=== PATIENT | male | born 1980 | race African-American/Black ===

== ENCOUNTER 2021-04-27 13:18 | Emergency (ER) | payer OTHER ==
[2021-04-27 13:29] VITALS: TEMP 98.5; BMI 23.0
[2021-04-27 14:40] LABS: URINE APPEARANCE CLEAR; URINE BILIRUBIN NEGATIVE (NEGATIVE); URINE COLOR YELLOW; URINE GLUCOSE (UA) NEGATIVE (NEGATIVE); URINE KETONE NEGATIVE (NEGATIVE); URINE LEUK ESTERASE NEGATIVE (NEGATIVE); URINE NITRITE NEGATIVE (NEGATIVE); URINE PROTEIN NEGATIVE (NEGATIVE)
[2021-04-27 14:50] LABS: EOS % 1.4 % (0-4.5); HEMATOCRIT 42.8 % (35.4-49); HEMOGLOBIN 13.8 GM/dL (11.7-16.9); LYMPH % 33.7 % (8-40); MCH 23.6 pg (25.7-33.7); MCHC 32.3 g/dl (32.0-35.9); MEAN CELL VOLUME 73.1 fl (80-96); MEAN PLT VOLUME 8.4 fl (7.5-11.1); MONO % 13.2 % (3.8-10.2); NEUT % 50.7 % (42.8-82.8); PLATELET COUNT 258 K/MM3 (134-434); RBC 5.86 M/mm3 (4.00-5.60); RDW 16.9 % (11.9-15.9); WHITE BLOOD COUNT 4.1 K/mm3 (4.0-10.0)
[2021-04-27 15:00] LABS: INR 1.01 (0.83-1.09); PROTHROMBIN TIME (PATIENT) 12.4 SEC (9.7-13.0)
[2021-04-27 15:02] LABS: ACTIVATED PTT 30.8 SECONDS (25.2-36.5)
[2021-04-27 15:12] LABS: ALBUMIN 4.6 g/dl (3.4-5.0); CALCIUM 9.1 mg/dL (8.5-10.1)
[2021-04-27 15:13] LABS: BLOOD UREA NITROGEN 13.7 mg/dL (7-18)
[2021-04-27 15:16] LABS: CREATININE 0.9 mg/dL (0.55-1.3)
[2021-04-27 15:17] LABS: BILIRUBIN,TOTAL 0.5 mg/dL (0.2-1); TOT PROT 7.8 g/dl (6.4-8.2)
[2021-04-27 17:46] VITALS: BP 118/80; PULSE 72
== END 2021-04-27 17:46 | disposition home or self-care (01) ==
LOC: JER 13:18
DX: R10.11 Right upper quadrant pain (principal)
CPT/HCPCS: 36415; 74177-TC; 80053; 81003; 85025; 85379; 85610; 85730; 99285-25; Q9967

== ENCOUNTER 2024-11-15 09:16 | Emergency (ER) | payer OTHER ==
[2024-11-15 09:23] VITALS: PULSE 68; RESP 16; BMI 25.1
[2024-11-15] MEDS ORDERED: ACETAMINOPHEN 500 MG TABLET (FP) ONE (09:31)
[2024-11-15] MEDS ORDERED: diazePAM 5 MG TABLET ONE (09:32)
[2024-11-15] MEDS: diazePAM 5 MG TABLET PO ONE (09:45)
[2024-11-15] MEDS: ACETAMINOPHEN 500 MG TABLET (FP) PO ONE (09:45)
[2024-11-15 12:05] VITALS: BP 103/70
== END 2024-11-15 12:14 | disposition home or self-care (01) ==
LOC: FER 09:16
DX: M54.2 Cervicalgia (principal); M25.511 Pain in right shoulder; M25.512 Pain in left shoulder; M54.9 Dorsalgia, unspecified; V49.40XA Driver injured in collision with unspecified motor vehicles in traffic accident, initial encounter; U07.1 COVID-19
CPT/HCPCS: 0241U-QW; 70450-TC; 71045-TC-FY; 72125-TC; 72128-TC; 72131-TC; 72170-TC-FY; 73030-TC-LT-FY; 73030-TC-RT-FY; 73070-TC-LT-FY; 76604; 76705-TC; 93308; 99285-25